=== PATIENT | male | born 1965 | race Caucasian/White ===

== ENCOUNTER → 2017-08-17 | Day surgery (SDC) | payer OTHER ==
[~2017-08-17] MED LIST: AMBI10TA PO; BUPIVACAINE HCL PF 0.25% 30 ML VIAL ONE; LACTATED RINGER'S 1000 ML INJ 1,000 ML ONE; METF-324 OR; MIDAZOLAM HCL 2 MG/2 ML VIAL ONE; NIAC500T5 PO; ONDANSETRON HCL 4 MG/2 ML VIAL IV PUSH ONE; PRAZ2 PO; PROPOFOL 200 MG/20 ML AMP IV ONE; ceFAZolin 2 GM PREMIX 50 ML ONE
--- NOTE | 2017-08-17 21:56 | MP ---
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 PROCEDURES PERFORMED 1. First MPJ capsulotomy capsular release 2. Sharp excisional full-thickness ulcer debridement plantar hallux IPJ with application of Apligraf SPECIMEN None ESTIMATED BLOOD LOSS Less than 30 mL COMPLICATIONS None. 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 We tried conservative treatment in the office and the patient did not heal. The patient had no signs of bone infection, negative x-rays. We devised a plan to move forward with release of joint contracture and application of Apligraf. The patient will need to be non-weightbearing, control his blood sugars after the surgery minimum 1 month. No guarantees were given or implied regarding the outcome. PROCEDURE IN DETAIL Under mild sedation, the patient was brought into the operating room, placed on the operating table in the supine position. Following the induction of general anesthesia, local anesthesia was obtained about the patient's right forefoot utilizing a standard block fashion. The right foot was then scrubbed, prepped, draped in the usual aseptic fashion. The foot was elevated, exsanguinated and the previously placed mid ankle tourniquet was inflated at 215 mmHg. A linear incision was made at plantar medial aspect of the first MPJ. Sharp blunt dissection was carried down to the capsule. A linear capsulotomy was performed. The flexor hallucis tendon was identified and retracted plantarly away from the dissection field. The first MPJ capsule was then released from the base of the proximal phalanx allowing for increased range of motion. The wound was then flushed with copious amounts of normal saline, FHL intact. Medial capsular incision was repaired utilizing Vicryl. Deep dermis was closed utilizing Vicryl. Skin was closed utilizing nylon. The plantar aspect of the hallux IPJ ulcer measured approximately 10 mm x 10 mm with no bone exposure. No drainage. No odor. No purulence. A sharp excisional debridement took place utilizing a 10 blade to viable bleeding tissue. Apligraf was then sutured in place. A well-padded non-adherent saturated bandage took place utilizing sterile ultrasound jelly. A Perry compressive dressing and a posterior splint was then applied. The patient was then transferred from OR to PACU with all vital signs stable. Good capillary fill time noted to the digit. Upon relieving the tourniquet, no excessive bleeding. The patient will elevate. No ice. Non-weightbearing. Follow up in 3-5 days. ALEX Mukherjee/ /3:58 PM /9:45 PM
== END | disposition home or self-care (01) ==
LOC: ESDC 12:50
PROVIDERS: ATTEND Podiatrist Foot & Ankle Surgery
DX: E11.621 Type 2 diabetes mellitus with foot ulcer (principal); L97.523 Non-pressure chronic ulcer of other part of left foot with necrosis of muscle; M24.572 Contracture, left ankle
CPT/HCPCS: 00400; 01470; 11043; 15275; 28270; J0690; J2250; J2405; J3010; J7120; Q4101